=== PATIENT | male | born 1955 | race Caucasian/White ===

== ENCOUNTER 2023-04-13 16:10 | Inpatient (IN) | payer MEDICARE, OTHER ==
[2023-04-13] MEDS ORDERED: Cyclobenzaprine 10 MG TAB PO PRN (17:41)
[2023-04-13] MEDS ORDERED: cloNIDine 0.1 MG TAB PO PRN ×2 (17:41→18:18)
[2023-04-13] MEDS ORDERED: Bisacodyl 5 MG TAB PO PRN (17:44)
[2023-04-13] MEDS ORDERED: HumaLOG 300 UNITS/3 ML VIAL SC PRN (17:44)
[2023-04-13] MEDS ORDERED: Ondansetron ODT 4 MG TAB SL PRN (17:44)
[2023-04-13] MEDS ORDERED: Glucagon 1 MG/ML KIT IM PRN (17:44)
[2023-04-13] MEDS ORDERED: Dextrose 50% Abboject 50 ML SYRINGE SLOW IVP PRN (17:44)
[2023-04-13] MEDS: Acetaminophen/Codeine 30-300mg Tablet PO SCH (18:26)
[2023-04-13] MEDS: Famotidine 20 MG TAB PO SCH (20:28)
[2023-04-13] MEDS: Ascorbic Acid 500 mg Chewable Tablet PO SCH (20:28)
[2023-04-13] MEDS: Atorvastatin Calcium 20 MG TAB PO SCH (20:28)
[2023-04-13] MEDS: Metoprolol Tartrate 25 MG TAB PO SCH (20:28)
[2023-04-13] MEDS: Apixaban 5 MG TAB PO SCH (20:28)
[2023-04-13] MEDS: Gabapentin 100 MG CAP PO SCH (21:42)
[2023-04-14] MEDS: Acetaminophen/Codeine 30-300mg Tablet PO SCH ×4 (00:10→16:55)
[2023-04-14] MEDS: Senokot S 8.6-50 MG TAB PO PRN (02:19)
[2023-04-14] MEDS: Gabapentin 100 MG CAP PO SCH ×3 (05:47→21:45)
[2023-04-14 05:51] LABS: #Eosinphils 0.1 thou/uL (0.0-0.7); #Lymphocytes 0.7 thou/uL (1.20-3.40); #Monocytes 0.5 thou/uL (0.11-0.59); #Neutrophils 2.1 thou/uL (1.40-6.50); %Basophils 1.3 % (0.0-1.0); %Eosinophils 1.4 % (0.0-10.0); %Lymphocytes 21.5 % (21.0-51.0); %Monocytes 14.5 % (0.0-10.0); %Neutrophils 61.3 % (42.0-75.0); Hemoglobin 9.1 g/dL (14.0-18.0); Mean Corpuscular HGB CONC 31.9 g/dL (32.0-36.0); Mean Corpuscular Hemoglobin 29.9 pg (27.0-31.0); Mean Corpuscular Volume 93.8 fl (78.0-98.0); Mean Platelet Volume 6.8 fL (7.4-10.4); Platelet Count 155 10x3/uL (130-400); RBC Distribution Width 14.8 % (11.5-14.5); Red Blood Cell (RBC) Count 3.04 mill/uL (4.70-6.10); White Blood Cell (WBC) Count 3.5 10x3/uL (4.8-10.8)
[2023-04-14 06:08] LABS: ALT (SGPT) 43 U/L (8-55); AST (SGOT) 48 U/L (5-34); Albumin 3.6 g/dL (3.4-4.8); Alkaline Phosphatase 54 U/L (40-110); Anion Gap 15 mmol/L (10-20); BUN (Urea Nitrogen) 14 mg/dL (8.4-25.7); Calc. Creatinine Clearance 190 mL/min (70-130); Calcium 8.9 mg/dL (7.8-10.44); Carbon Dioxide 25 mmol/L (23-31); Chloride 102 mmol/L (98-107); Estimated GFR 104; Globulin 2.4 g/dL (2.4-3.5); Glucose 113 mg/dL (80-115); Potassium 4.3 mmol/L (3.5-5.1); Sodium 138 mmol/L (136-145)
[2023-04-14] MEDS: Famotidine 20 MG TAB PO SCH ×2 (07:29→20:34)
[2023-04-14] MEDS: Apixaban 5 MG TAB PO SCH ×2 (07:29→20:34)
[2023-04-14] MEDS: Allopurinol 100 MG TAB PO SCH (07:29)
[2023-04-14] MEDS: Ferrous Sulfate 325 MG TAB PO SCH ×2 (07:29→16:55)
[2023-04-14] MEDS: Ascorbic Acid 500 mg Chewable Tablet PO SCH ×2 (07:29→20:34)
[2023-04-14] MEDS: Empagliflozin 10 MG TAB PO SCH (07:30)
[2023-04-14] MEDS: metFORMIN 500 MG TAB PO SCH ×2 (07:30→16:55)
[2023-04-14] MEDS: Amlodipine 5 MG TAB PO SCH (07:41)
[2023-04-14] MEDS: Ramipril 5 MG CAP PO SCH (07:42)
[2023-04-14] MEDS: Metoprolol Tartrate 25 MG TAB PO SCH ×2 (07:42→20:34)
[2023-04-14] MEDS: Atorvastatin Calcium 20 MG TAB PO SCH (20:34)
[2023-04-15] MEDS: Acetaminophen/Codeine 30-300mg Tablet PO SCH ×4 (00:04→17:47)
[2023-04-15] MEDS: Gabapentin 100 MG CAP PO SCH ×3 (05:44→20:51)
[2023-04-15] MEDS: Ramipril 5 MG CAP PO SCH (08:56)
[2023-04-15] MEDS: Famotidine 20 MG TAB PO SCH ×2 (08:57→20:46)
[2023-04-15] MEDS: Allopurinol 100 MG TAB PO SCH (08:57)
[2023-04-15] MEDS: Apixaban 5 MG TAB PO SCH ×2 (08:57→20:44)
[2023-04-15] MEDS: Ferrous Sulfate 325 MG TAB PO SCH ×2 (08:57→17:46)
[2023-04-15] MEDS: Ascorbic Acid 500 mg Chewable Tablet PO SCH ×2 (08:58→20:44)
[2023-04-15] MEDS: Amlodipine 5 MG TAB PO SCH (08:58)
[2023-04-15] MEDS: metFORMIN 500 MG TAB PO SCH ×2 (08:59→17:47)
[2023-04-15] MEDS: Empagliflozin 10 MG TAB PO SCH (08:59)
[2023-04-15] MEDS: Metoprolol Tartrate 25 MG TAB PO SCH ×2 (09:00→20:46)
[2023-04-15] MEDS: HumaLOG 300 UNITS/3 ML VIAL SC PRN (12:04)
[2023-04-15] MEDS: Atorvastatin Calcium 20 MG TAB PO SCH (20:46)
[2023-04-16] MEDS: Acetaminophen/Codeine 30-300mg Tablet PO SCH ×5 (05:53→23:54)
[2023-04-16] MEDS: Gabapentin 100 MG CAP PO SCH ×3 (05:55→21:53)
[2023-04-16 06:34] LABS: #Lymphocytes 0.9 thou/uL (1.20-3.40); #Monocytes 0.5 thou/uL (0.11-0.59); #Neutrophils 2.4 thou/uL (1.40-6.50); %Basophils 0.9 % (0.0-1.0); %Eosinophils 1.2 % (0.0-10.0); %Lymphocytes 22.5 % (21.0-51.0); %Monocytes 13.2 % (0.0-10.0); %Neutrophils 62.2 % (42.0-75.0); Hemoglobin 9.4 g/dL (14.0-18.0); Mean Corpuscular HGB CONC 31.9 g/dL (32.0-36.0); Mean Corpuscular Hemoglobin 30.3 pg (27.0-31.0); Mean Corpuscular Volume 94.9 fl (78.0-98.0); Platelet Count 163 10x3/uL (130-400); RBC Distribution Width 16.3 % (11.5-14.5); Red Blood Cell (RBC) Count 3.11 mill/uL (4.70-6.10); White Blood Cell (WBC) Count 3.9 10x3/uL (4.8-10.8)
[2023-04-16 06:48] LABS: ALT (SGPT) 52 U/L (8-55); AST (SGOT) 46 U/L (5-34); Albumin 3.5 g/dL (3.4-4.8); Alkaline Phosphatase 58 U/L (40-110); Anion Gap 15 mmol/L (10-20); BUN (Urea Nitrogen) 10 mg/dL (8.4-25.7); Bilirubin, Total 1.7 mg/dL (0.2-1.2); Calc. Creatinine Clearance 192 mL/min (70-130); Calcium 8.8 mg/dL (7.8-10.44); Carbon Dioxide 27 mmol/L (23-31); Chloride 101 mmol/L (98-107); Estimated GFR 104; Globulin 2.5 g/dL (2.4-3.5); Glucose 110 mg/dL (80-115); Potassium 4.2 mmol/L (3.5-5.1); Sodium 139 mmol/L (136-145)
[2023-04-16] MEDS: metFORMIN 500 MG TAB PO SCH ×2 (07:35→17:12)
[2023-04-16] MEDS: Ferrous Sulfate 325 MG TAB PO SCH ×2 (07:36→17:10)
[2023-04-16] MEDS: Metoprolol Tartrate 25 MG TAB PO SCH ×2 (07:36→20:57)
[2023-04-16] MEDS: Allopurinol 100 MG TAB PO SCH (07:36)
[2023-04-16] MEDS: Famotidine 20 MG TAB PO SCH ×2 (07:36→20:58)
[2023-04-16] MEDS: Ascorbic Acid 500 mg Chewable Tablet PO SCH ×2 (07:36→20:57)
[2023-04-16] MEDS: Apixaban 5 MG TAB PO SCH ×2 (07:37→20:57)
[2023-04-16] MEDS: Empagliflozin 10 MG TAB PO SCH (07:38)
[2023-04-16] MEDS: Amlodipine 5 MG TAB PO SCH (07:39)
[2023-04-16] MEDS: Ramipril 5 MG CAP PO SCH (07:40)
[2023-04-16] MEDS: Atorvastatin Calcium 20 MG TAB PO SCH (20:57)
[2023-04-17] MEDS: Acetaminophen/Codeine 30-300mg Tablet PO SCH ×4 (05:42→23:54)
[2023-04-17] MEDS: Gabapentin 100 MG CAP PO SCH ×3 (05:43→21:02)
[2023-04-17] MEDS: Allopurinol 100 MG TAB PO SCH (08:40)
[2023-04-17] MEDS: Ascorbic Acid 500 mg Chewable Tablet PO SCH ×2 (08:40→21:01)
[2023-04-17] MEDS: Apixaban 5 MG TAB PO SCH ×2 (08:40→21:04)
[2023-04-17] MEDS: Ferrous Sulfate 325 MG TAB PO SCH ×2 (08:40→17:46)
[2023-04-17] MEDS: Famotidine 20 MG TAB PO SCH ×2 (08:40→21:01)
[2023-04-17] MEDS: metFORMIN 500 MG TAB PO SCH ×2 (08:40→17:47)
[2023-04-17] MEDS: Ramipril 5 MG CAP PO SCH (08:41)
[2023-04-17] MEDS: Amlodipine 5 MG TAB PO SCH (08:41)
[2023-04-17] MEDS: Empagliflozin 10 MG TAB PO SCH (08:41)
[2023-04-17] MEDS: Metoprolol Tartrate 25 MG TAB PO SCH ×2 (08:42→21:01)
[2023-04-17] MEDS: Atorvastatin Calcium 20 MG TAB PO SCH (21:01)
[2023-04-18] MEDS: Acetaminophen/Codeine 30-300mg Tablet PO SCH ×4 (05:39→23:38)
[2023-04-18] MEDS: Gabapentin 100 MG CAP PO SCH ×3 (05:40→21:18)
[2023-04-18 06:15] LABS: #Lymphocytes 0.9 thou/uL (1.20-3.40); #Monocytes 0.5 thou/uL (0.11-0.59); #Neutrophils 2.1 thou/uL (1.40-6.50); %Basophils 1.1 % (0.0-1.0); %Eosinophils 1.2 % (0.0-10.0); %Lymphocytes 26.3 % (21.0-51.0); %Monocytes 13.3 % (0.0-10.0); %Neutrophils 58.2 % (42.0-75.0); Hemoglobin 9.6 g/dL (14.0-18.0); Mean Corpuscular HGB CONC 32.5 g/dL (32.0-36.0); Mean Corpuscular Hemoglobin 30.2 pg (27.0-31.0); Mean Corpuscular Volume 93.1 fl (78.0-98.0); Mean Platelet Volume 7.5 fL (7.4-10.4); Platelet Count 180 10x3/uL (130-400); RBC Distribution Width 16.4 % (11.5-14.5); Red Blood Cell (RBC) Count 3.19 mill/uL (4.70-6.10); White Blood Cell (WBC) Count 3.6 10x3/uL (4.8-10.8)
[2023-04-18 06:23] LABS: ALT (SGPT) 40 U/L (8-55); AST (SGOT) 33 U/L (5-34); Albumin 3.4 g/dL (3.4-4.8); Alkaline Phosphatase 62 U/L (40-110); Anion Gap 14 mmol/L (10-20); BUN (Urea Nitrogen) 9 mg/dL (8.4-25.7); Bilirubin, Total 1.8 mg/dL (0.2-1.2); Calc. Creatinine Clearance 192 mL/min (70-130); Calcium 8.7 mg/dL (7.8-10.44); Carbon Dioxide 26 mmol/L (23-31); Chloride 101 mmol/L (98-107); Estimated GFR 104; Globulin 2.4 g/dL (2.4-3.5); Glucose 103 mg/dL (80-115); Protein, Total 5.8 g/dL (5.8-8.1); Sodium 137 mmol/L (136-145)
[2023-04-18] MEDS: metFORMIN 500 MG TAB PO SCH ×2 (08:12→17:02)
[2023-04-18] MEDS: Ramipril 5 MG CAP PO SCH (08:12)
[2023-04-18] MEDS: Empagliflozin 10 MG TAB PO SCH (08:12)
[2023-04-18] MEDS: Ascorbic Acid 500 mg Chewable Tablet PO SCH ×2 (08:12→20:45)
[2023-04-18] MEDS: Famotidine 20 MG TAB PO SCH ×2 (08:12→20:43)
[2023-04-18] MEDS: Metoprolol Tartrate 25 MG TAB PO SCH ×2 (08:13→20:44)
[2023-04-18] MEDS: Apixaban 5 MG TAB PO SCH ×2 (08:13→20:44)
[2023-04-18] MEDS: Ferrous Sulfate 325 MG TAB PO SCH ×2 (08:13→17:02)
[2023-04-18] MEDS: Allopurinol 100 MG TAB PO SCH (08:13)
[2023-04-18] MEDS: Amlodipine 5 MG TAB PO SCH (08:13)
[2023-04-18] MEDS: Atorvastatin Calcium 20 MG TAB PO SCH (20:44)
[2023-04-19] MEDS: Acetaminophen/Codeine 30-300mg Tablet PO SCH ×3 (05:38→17:08)
[2023-04-19] MEDS: Gabapentin 100 MG CAP PO SCH ×2 (05:38→14:23)
[2023-04-19] MEDS: metFORMIN 500 MG TAB PO SCH ×2 (08:11→17:08)
[2023-04-19] MEDS: Metoprolol Tartrate 25 MG TAB PO SCH ×2 (08:12→21:15)
[2023-04-19] MEDS: Ferrous Sulfate 325 MG TAB PO SCH ×2 (08:12→17:08)
[2023-04-19] MEDS: Famotidine 20 MG TAB PO SCH ×2 (08:12→21:15)
[2023-04-19] MEDS: Ramipril 5 MG CAP PO SCH (08:12)
[2023-04-19] MEDS: Allopurinol 100 MG TAB PO SCH (08:12)
[2023-04-19] MEDS: Amlodipine 5 MG TAB PO SCH (08:13)
[2023-04-19] MEDS: Empagliflozin 10 MG TAB PO SCH (08:14)
[2023-04-19] MEDS: Ascorbic Acid 500 mg Chewable Tablet PO SCH ×2 (08:14→21:15)
[2023-04-19] MEDS: Apixaban 5 MG TAB PO SCH ×2 (08:14→21:15)
[2023-04-19] MEDS ORDERED: Furosemide 20 MG TAB PO SCH (16:45)
[2023-04-19] MEDS: Atorvastatin Calcium 20 MG TAB PO SCH (21:15)
[2023-04-20] MEDS: Acetaminophen/Codeine 30-300mg Tablet PO SCH ×5 (01:24→23:58)
[2023-04-20 06:02] LABS: #Eosinphils 0.1 thou/uL (0.0-0.7); #Lymphocytes 0.8 thou/uL (1.20-3.40); #Monocytes 0.4 thou/uL (0.11-0.59); #Neutrophils 2.3 thou/uL (1.40-6.50); %Basophils 0.5 % (0.0-1.0); %Eosinophils 1.5 % (0.0-10.0); %Lymphocytes 22.5 % (21.0-51.0); %Monocytes 11.5 % (0.0-10.0); Hemoglobin 9.9 g/dL (14.0-18.0); Mean Corpuscular HGB CONC 31.1 g/dL (32.0-36.0); Mean Corpuscular Hemoglobin 29.1 pg (27.0-31.0); Mean Corpuscular Volume 93.5 fl (78.0-98.0); Mean Platelet Volume 5.5 fL (7.4-10.4); Platelet Count 178 10x3/uL (130-400); RBC Distribution Width 16.5 % (11.5-14.5); White Blood Cell (WBC) Count 3.6 10x3/uL (4.8-10.8)
[2023-04-20 06:22] LABS: ALT (SGPT) 36 U/L (8-55); AST (SGOT) 31 U/L (5-34); Albumin 3.5 g/dL (3.4-4.8); Alkaline Phosphatase 78 U/L (40-110); Anion Gap 14 mmol/L (10-20); BUN (Urea Nitrogen) 10 mg/dL (8.4-25.7); Bilirubin, Total 1.7 mg/dL (0.2-1.2); Calc. Creatinine Clearance 185 mL/min (70-130); Calcium 8.8 mg/dL (7.8-10.44); Carbon Dioxide 26 mmol/L (23-31); Chloride 102 mmol/L (98-107); Estimated GFR 103; Globulin 2.3 g/dL (2.4-3.5); Glucose 99 mg/dL (80-115); Potassium 4.1 mmol/L (3.5-5.1); Protein, Total 5.8 g/dL (5.8-8.1); Sodium 138 mmol/L (136-145)
[2023-04-20] MEDS: metFORMIN 500 MG TAB PO SCH ×2 (08:55→17:02)
[2023-04-20] MEDS: Empagliflozin 10 MG TAB PO SCH (08:55)
[2023-04-20] MEDS: Apixaban 5 MG TAB PO SCH ×2 (08:55→21:38)
[2023-04-20] MEDS: Ramipril 5 MG CAP PO SCH (08:55)
[2023-04-20] MEDS: Amlodipine 5 MG TAB PO SCH (08:56)
[2023-04-20] MEDS: Furosemide 20 MG TAB PO SCH (08:56)
[2023-04-20] MEDS: Famotidine 20 MG TAB PO SCH ×2 (08:56→21:38)
[2023-04-20] MEDS: Allopurinol 100 MG TAB PO SCH (08:56)
[2023-04-20] MEDS: Metoprolol Tartrate 25 MG TAB PO SCH ×2 (08:56→21:38)
[2023-04-20] MEDS: Ascorbic Acid 500 mg Chewable Tablet PO SCH ×2 (08:56→21:38)
[2023-04-20] MEDS: Ferrous Sulfate 325 MG TAB PO SCH ×2 (08:57→17:03)
[2023-04-20] MEDS: Atorvastatin Calcium 20 MG TAB PO SCH (21:39)
[2023-04-21] MEDS: Acetaminophen/Codeine 30-300mg Tablet PO SCH ×3 (05:21→17:18)
[2023-04-21] MEDS: Famotidine 20 MG TAB PO SCH ×2 (07:51→20:44)
[2023-04-21] MEDS: Allopurinol 100 MG TAB PO SCH (07:51)
[2023-04-21] MEDS: Metoprolol Tartrate 25 MG TAB PO SCH ×2 (07:52→20:45)
[2023-04-21] MEDS: Ramipril 5 MG CAP PO SCH (07:52)
[2023-04-21] MEDS: Ibuprofen 200 MG TAB PO PRN (07:53)
[2023-04-21] MEDS: Ferrous Sulfate 325 MG TAB PO SCH ×2 (07:53→17:18)
[2023-04-21] MEDS: metFORMIN 500 MG TAB PO SCH ×2 (07:53→17:18)
[2023-04-21] MEDS: Amlodipine 5 MG TAB PO SCH (07:53)
[2023-04-21] MEDS: Apixaban 5 MG TAB PO SCH ×2 (07:54→20:45)
[2023-04-21] MEDS: Ascorbic Acid 500 mg Chewable Tablet PO SCH ×2 (07:54→20:45)
[2023-04-21] MEDS: Empagliflozin 10 MG TAB PO SCH (07:54)
[2023-04-21] MEDS: Furosemide 20 MG TAB PO SCH (11:32)
[2023-04-21] MEDS: Cephalexin 500 MG CAP PO SCH (17:17)
[2023-04-21] MEDS: Atorvastatin Calcium 20 MG TAB PO SCH (20:45)
[2023-04-22] MEDS: Acetaminophen/Codeine 30-300mg Tablet PO SCH ×5 (00:02→23:43)
[2023-04-22] MEDS: Cephalexin 500 MG CAP PO SCH ×5 (00:02→23:43)
[2023-04-22] MEDS: Ibuprofen 200 MG TAB PO PRN (03:16)
[2023-04-22] MEDS: metFORMIN 500 MG TAB PO SCH ×2 (08:29→17:05)
[2023-04-22] MEDS: Amlodipine 5 MG TAB PO SCH (08:29)
[2023-04-22] MEDS: Ferrous Sulfate 325 MG TAB PO SCH ×2 (08:29→17:06)
[2023-04-22] MEDS: Ramipril 5 MG CAP PO SCH (08:29)
[2023-04-22] MEDS: Famotidine 20 MG TAB PO SCH ×2 (08:29→20:55)
[2023-04-22] MEDS: Furosemide 20 MG TAB PO SCH (08:29)
[2023-04-22] MEDS: Apixaban 5 MG TAB PO SCH ×2 (08:30→21:01)
[2023-04-22] MEDS: Ascorbic Acid 500 mg Chewable Tablet PO SCH ×2 (08:31→21:01)
[2023-04-22] MEDS: Allopurinol 100 MG TAB PO SCH (08:31)
[2023-04-22] MEDS: Empagliflozin 10 MG TAB PO SCH (08:31)
[2023-04-22] MEDS: Metoprolol Tartrate 25 MG TAB PO SCH ×2 (08:31→21:01)
[2023-04-22] MEDS: HumaLOG 300 UNITS/3 ML VIAL SC PRN (11:15)
[2023-04-22] MEDS: Atorvastatin Calcium 20 MG TAB PO SCH (21:00)
[2023-04-23] MEDS: Acetaminophen/Codeine 30-300mg Tablet PO SCH ×4 (05:28→23:45)
[2023-04-23] MEDS: Cephalexin 500 MG CAP PO SCH ×4 (05:28→23:45)
[2023-04-23] MEDS: Ramipril 5 MG CAP PO SCH (08:14)
[2023-04-23] MEDS: Ferrous Sulfate 325 MG TAB PO SCH ×2 (08:14→17:07)
[2023-04-23] MEDS: Allopurinol 100 MG TAB PO SCH (08:14)
[2023-04-23] MEDS: Famotidine 20 MG TAB PO SCH ×2 (08:14→20:38)
[2023-04-23] MEDS: Furosemide 20 MG TAB PO SCH (08:14)
[2023-04-23] MEDS: Ascorbic Acid 500 mg Chewable Tablet PO SCH ×2 (08:14→20:38)
[2023-04-23] MEDS: metFORMIN 500 MG TAB PO SCH ×2 (08:14→17:07)
[2023-04-23] MEDS: Metoprolol Tartrate 25 MG TAB PO SCH ×2 (08:15→20:38)
[2023-04-23] MEDS: Empagliflozin 10 MG TAB PO SCH (08:15)
[2023-04-23] MEDS: Apixaban 5 MG TAB PO SCH ×2 (08:15→20:38)
[2023-04-23] MEDS: Amlodipine 5 MG TAB PO SCH (08:15)
[2023-04-23] MEDS ORDERED: Furosemide 20 MG TAB PO SCH (13:00)
[2023-04-23] MEDS: Atorvastatin Calcium 20 MG TAB PO SCH (20:37)
[2023-04-24] MEDS: Acetaminophen/Codeine 30-300mg Tablet PO SCH ×4 (05:12→23:40)
[2023-04-24] MEDS: Cephalexin 500 MG CAP PO SCH ×4 (05:13→23:40)
[2023-04-24] MEDS: Allopurinol 100 MG TAB PO SCH (08:54)
[2023-04-24] MEDS: Ramipril 5 MG CAP PO SCH (08:55)
[2023-04-24] MEDS: metFORMIN 500 MG TAB PO SCH ×2 (08:56→17:21)
[2023-04-24] MEDS: Ferrous Sulfate 325 MG TAB PO SCH ×2 (08:56→17:19)
[2023-04-24] MEDS: Furosemide 20 MG TAB PO SCH (08:56)
[2023-04-24] MEDS: Metoprolol Tartrate 25 MG TAB PO SCH ×2 (08:56→20:57)
[2023-04-24] MEDS: Famotidine 20 MG TAB PO SCH ×2 (08:57→20:57)
[2023-04-24] MEDS: Empagliflozin 10 MG TAB PO SCH (08:57)
[2023-04-24] MEDS: Amlodipine 5 MG TAB PO SCH (08:57)
[2023-04-24] MEDS: Ascorbic Acid 500 mg Chewable Tablet PO SCH ×2 (08:57→20:57)
[2023-04-24] MEDS: Apixaban 5 MG TAB PO SCH ×2 (08:57→20:57)
[2023-04-24] MEDS: HumaLOG 300 UNITS/3 ML VIAL SC PRN (17:18)
[2023-04-24] MEDS: Atorvastatin Calcium 20 MG TAB PO SCH (20:57)
[2023-04-25] MEDS: Acetaminophen/Codeine 30-300mg Tablet PO SCH ×3 (05:33→17:27)
[2023-04-25] MEDS: Cephalexin 500 MG CAP PO SCH ×3 (05:33→17:27)
[2023-04-25 05:34] LABS: ALT (SGPT) 37 U/L (8-55); AST (SGOT) 34 U/L (5-34); Albumin 3.9 g/dL (3.4-4.8); Alkaline Phosphatase 100 U/L (40-110); Anion Gap 13 mmol/L (10-20); BUN (Urea Nitrogen) 8 mg/dL (8.4-25.7); Bilirubin, Total 1.2 mg/dL (0.2-1.2); Calc. Creatinine Clearance 164 mL/min (70-130); Calcium 9.4 mg/dL (7.8-10.44); Carbon Dioxide 30 mmol/L (23-31); Chloride 101 mmol/L (98-107); Estimated GFR 101; Glucose 114 mg/dL (80-115); Potassium 4.1 mmol/L (3.5-5.1); Protein, Total 6.9 g/dL (5.8-8.1); Sodium 140 mmol/L (136-145)
[2023-04-25] MEDS: Furosemide 20 MG TAB PO SCH (07:59)
[2023-04-25] MEDS: Allopurinol 100 MG TAB PO SCH (07:59)
[2023-04-25] MEDS: metFORMIN 500 MG TAB PO SCH ×2 (08:00→17:27)
[2023-04-25] MEDS: Ramipril 5 MG CAP PO SCH (08:00)
[2023-04-25] MEDS: Amlodipine 5 MG TAB PO SCH (08:00)
[2023-04-25] MEDS: Famotidine 20 MG TAB PO SCH ×2 (08:01→21:34)
[2023-04-25] MEDS: Ferrous Sulfate 325 MG TAB PO SCH ×2 (08:01→17:27)
[2023-04-25] MEDS: Apixaban 5 MG TAB PO SCH ×2 (08:01→21:35)
[2023-04-25] MEDS: Metoprolol Tartrate 25 MG TAB PO SCH ×2 (08:01→21:34)
[2023-04-25] MEDS: Ascorbic Acid 500 mg Chewable Tablet PO SCH ×2 (08:01→21:34)
[2023-04-25] MEDS: Empagliflozin 10 MG TAB PO SCH (08:01)
[2023-04-25] MEDS: Atorvastatin Calcium 20 MG TAB PO SCH (21:36)
[2023-04-26] MEDS: Cephalexin 500 MG CAP PO SCH ×4 (00:07→17:29)
[2023-04-26] MEDS: Acetaminophen/Codeine 30-300mg Tablet PO SCH ×4 (00:07→17:31)
[2023-04-26] MEDS: Metoprolol Tartrate 25 MG TAB PO SCH ×2 (08:45→21:47)
[2023-04-26] MEDS: Famotidine 20 MG TAB PO SCH ×2 (08:45→21:47)
[2023-04-26] MEDS: Ramipril 5 MG CAP PO SCH (08:45)
[2023-04-26] MEDS: Allopurinol 100 MG TAB PO SCH (08:46)
[2023-04-26] MEDS: Apixaban 5 MG TAB PO SCH ×2 (08:46→21:47)
[2023-04-26] MEDS: Ferrous Sulfate 325 MG TAB PO SCH ×2 (08:47→17:29)
[2023-04-26] MEDS: Empagliflozin 10 MG TAB PO SCH (08:47)
[2023-04-26] MEDS: Amlodipine 5 MG TAB PO SCH (08:47)
[2023-04-26] MEDS: Ascorbic Acid 500 mg Chewable Tablet PO SCH ×2 (08:47→21:48)
[2023-04-26] MEDS: metFORMIN 500 MG TAB PO SCH ×2 (08:48→17:33)
[2023-04-26] MEDS: Furosemide 20 MG TAB PO SCH (08:48)
[2023-04-26] MEDS: Atorvastatin Calcium 20 MG TAB PO SCH (21:48)
[2023-04-27] MEDS: Cephalexin 500 MG CAP PO SCH ×5 (00:10→23:32)
[2023-04-27] MEDS: Acetaminophen/Codeine 30-300mg Tablet PO SCH ×5 (00:10→23:32)
[2023-04-27 06:07] LABS: Hemoglobin 11.8 g/dL (14.0-18.0)
[2023-04-27] MEDS: Ferrous Sulfate 325 MG TAB PO SCH ×2 (09:19→16:36)
[2023-04-27] MEDS: metFORMIN 500 MG TAB PO SCH ×2 (09:19→16:36)
[2023-04-27] MEDS: Amlodipine 5 MG TAB PO SCH (09:20)
[2023-04-27] MEDS: Ascorbic Acid 500 mg Chewable Tablet PO SCH ×2 (09:20→20:35)
[2023-04-27] MEDS: Allopurinol 100 MG TAB PO SCH (09:20)
[2023-04-27] MEDS: Apixaban 5 MG TAB PO SCH ×2 (09:21→20:35)
[2023-04-27] MEDS: Metoprolol Tartrate 25 MG TAB PO SCH ×2 (09:21→20:36)
[2023-04-27] MEDS: Famotidine 20 MG TAB PO SCH ×2 (09:21→20:35)
[2023-04-27] MEDS: Furosemide 20 MG TAB PO SCH (09:21)
[2023-04-27] MEDS: Ramipril 5 MG CAP PO SCH (09:21)
[2023-04-27] MEDS: Empagliflozin 10 MG TAB PO SCH (09:22)
[2023-04-27] MEDS: Senokot S 8.6-50 MG TAB PO PRN (16:39)
[2023-04-27] MEDS: Atorvastatin Calcium 20 MG TAB PO SCH (20:35)
[2023-04-28] MEDS: Acetaminophen/Codeine 30-300mg Tablet PO SCH ×4 (05:29→23:45)
[2023-04-28] MEDS: Cephalexin 500 MG CAP PO SCH ×2 (05:29→12:59)
[2023-04-28] MEDS: Amlodipine 5 MG TAB PO SCH (08:16)
[2023-04-28] MEDS: Ascorbic Acid 500 mg Chewable Tablet PO SCH ×2 (08:16→20:29)
[2023-04-28] MEDS: Apixaban 5 MG TAB PO SCH ×2 (08:16→20:29)
[2023-04-28] MEDS: Furosemide 20 MG TAB PO SCH (08:16)
[2023-04-28] MEDS: Allopurinol 100 MG TAB PO SCH (08:16)
[2023-04-28] MEDS: Ferrous Sulfate 325 MG TAB PO SCH ×2 (08:17→16:31)
[2023-04-28] MEDS: Empagliflozin 10 MG TAB PO SCH (08:17)
[2023-04-28] MEDS: Metoprolol Tartrate 25 MG TAB PO SCH ×2 (08:17→20:29)
[2023-04-28] MEDS: metFORMIN 500 MG TAB PO SCH ×2 (08:17→16:31)
[2023-04-28] MEDS: Famotidine 20 MG TAB PO SCH ×2 (08:19→20:29)
[2023-04-28] MEDS: Ramipril 5 MG CAP PO SCH (08:19)
[2023-04-28] MEDS: HumaLOG 300 UNITS/3 ML VIAL SC PRN (16:34)
[2023-04-28] MEDS: Atorvastatin Calcium 20 MG TAB PO SCH (20:29)
[2023-04-29] MEDS: Acetaminophen/Codeine 30-300mg Tablet PO SCH ×4 (05:38→23:42)
[2023-04-29] MEDS: Apixaban 5 MG TAB PO SCH ×2 (07:57→20:45)
[2023-04-29] MEDS: Ramipril 5 MG CAP PO SCH (07:57)
[2023-04-29] MEDS: Ascorbic Acid 500 mg Chewable Tablet PO SCH ×2 (07:58→20:45)
[2023-04-29] MEDS: Amlodipine 5 MG TAB PO SCH (07:58)
[2023-04-29] MEDS: Allopurinol 100 MG TAB PO SCH (07:59)
[2023-04-29] MEDS: metFORMIN 500 MG TAB PO SCH ×2 (07:59→17:43)
[2023-04-29] MEDS: Furosemide 20 MG TAB PO SCH (08:00)
[2023-04-29] MEDS: Ferrous Sulfate 325 MG TAB PO SCH ×2 (08:00→17:43)
[2023-04-29] MEDS: Metoprolol Tartrate 25 MG TAB PO SCH ×2 (08:00→20:45)
[2023-04-29] MEDS: Famotidine 20 MG TAB PO SCH ×2 (08:00→20:45)
[2023-04-29] MEDS: Empagliflozin 10 MG TAB PO SCH (08:03)
[2023-04-29] MEDS: Atorvastatin Calcium 20 MG TAB PO SCH (20:45)
[2023-04-30] MEDS: Acetaminophen/Codeine 30-300mg Tablet PO SCH ×4 (05:47→23:44)
[2023-04-30] MEDS: Allopurinol 100 MG TAB PO SCH (07:37)
[2023-04-30] MEDS: metFORMIN 500 MG TAB PO SCH ×2 (07:37→17:06)
[2023-04-30] MEDS: Apixaban 5 MG TAB PO SCH ×2 (07:38→20:38)
[2023-04-30] MEDS: Ascorbic Acid 500 mg Chewable Tablet PO SCH ×2 (07:38→20:38)
[2023-04-30] MEDS: Ramipril 5 MG CAP PO SCH (07:38)
[2023-04-30] MEDS: Amlodipine 5 MG TAB PO SCH (07:38)
[2023-04-30] MEDS: Furosemide 20 MG TAB PO SCH (07:39)
[2023-04-30] MEDS: Ferrous Sulfate 325 MG TAB PO SCH ×2 (07:39→17:05)
[2023-04-30] MEDS: Empagliflozin 10 MG TAB PO SCH (07:39)
[2023-04-30] MEDS: Metoprolol Tartrate 25 MG TAB PO SCH ×2 (07:39→20:38)
[2023-04-30] MEDS: Famotidine 20 MG TAB PO SCH ×2 (07:39→20:38)
[2023-04-30] MEDS: HumaLOG 300 UNITS/3 ML VIAL SC PRN (17:08)
[2023-04-30] MEDS: Atorvastatin Calcium 20 MG TAB PO SCH (20:38)
[2023-05-01] MEDS: Acetaminophen/Codeine 30-300mg Tablet PO SCH ×4 (05:36→23:26)
[2023-05-01] MEDS: Ramipril 5 MG CAP PO SCH (07:54)
[2023-05-01] MEDS: Ferrous Sulfate 325 MG TAB PO SCH ×2 (07:55→17:11)
[2023-05-01] MEDS: Metoprolol Tartrate 25 MG TAB PO SCH ×2 (07:55→20:50)
[2023-05-01] MEDS: metFORMIN 500 MG TAB PO SCH ×2 (07:55→17:11)
[2023-05-01] MEDS: Allopurinol 100 MG TAB PO SCH (07:56)
[2023-05-01] MEDS: Amlodipine 5 MG TAB PO SCH (07:56)
[2023-05-01] MEDS: Furosemide 20 MG TAB PO SCH (07:56)
[2023-05-01] MEDS: Empagliflozin 10 MG TAB PO SCH (07:57)
[2023-05-01] MEDS: Ascorbic Acid 500 mg Chewable Tablet PO SCH ×2 (07:57→20:49)
[2023-05-01] MEDS: Famotidine 20 MG TAB PO SCH ×2 (07:57→20:50)
[2023-05-01] MEDS: Apixaban 5 MG TAB PO SCH ×2 (07:57→20:49)
[2023-05-01] MEDS: Senokot S 8.6-50 MG TAB PO PRN (08:03)
[2023-05-01] MEDS: HumaLOG 300 UNITS/3 ML VIAL SC PRN (17:10)
[2023-05-01] MEDS: Atorvastatin Calcium 20 MG TAB PO SCH (20:49)
[2023-05-02] MEDS: Acetaminophen/Codeine 30-300mg Tablet PO SCH ×4 (05:32→23:57)
[2023-05-02] MEDS: Ramipril 5 MG CAP PO SCH (08:06)
[2023-05-02] MEDS: Furosemide 20 MG TAB PO SCH (08:06)
[2023-05-02] MEDS: Empagliflozin 10 MG TAB PO SCH (08:06)
[2023-05-02] MEDS: Metoprolol Tartrate 25 MG TAB PO SCH ×2 (08:06→20:29)
[2023-05-02] MEDS: Famotidine 20 MG TAB PO SCH ×2 (08:06→20:29)
[2023-05-02] MEDS: metFORMIN 500 MG TAB PO SCH ×2 (08:07→17:14)
[2023-05-02] MEDS: Allopurinol 100 MG TAB PO SCH (08:07)
[2023-05-02] MEDS: Ferrous Sulfate 325 MG TAB PO SCH ×2 (08:07→17:14)
[2023-05-02] MEDS: Amlodipine 5 MG TAB PO SCH (08:07)
[2023-05-02] MEDS: Apixaban 5 MG TAB PO SCH ×2 (08:07→20:29)
[2023-05-02] MEDS: Ascorbic Acid 500 mg Chewable Tablet PO SCH ×2 (08:07→20:29)
[2023-05-02] MEDS: Atorvastatin Calcium 20 MG TAB PO SCH (20:29)
[2023-05-03 04:35] VITALS: BMI 30.7
[2023-05-03] MEDS: Acetaminophen/Codeine 30-300mg Tablet PO SCH ×3 (05:32→17:31)
[2023-05-03 05:52] LABS: #Eosinphils 0.1 thou/uL (0.0-0.7); #Lymphocytes 0.8 thou/uL (1.20-3.40); #Monocytes 0.4 thou/uL (0.11-0.59); #Neutrophils 1.3 thou/uL (1.40-6.50); %Basophils 0.7 % (0.0-1.0); %Eosinophils 2.6 % (0.0-10.0); %Lymphocytes 32.9 % (21.0-51.0); %Monocytes 14.6 % (0.0-10.0); %Neutrophils 49.2 % (42.0-75.0); Hemoglobin 12.9 g/dL (14.0-18.0); Mean Corpuscular HGB CONC 31.8 g/dL (32.0-36.0); Mean Corpuscular Hemoglobin 28.3 pg (27.0-31.0); Mean Corpuscular Volume 89.1 fl (78.0-98.0); Mean Platelet Volume 7.4 fL (7.4-10.4); Platelet Count 210 10x3/uL (130-400); RBC Distribution Width 15.3 % (11.5-14.5); Red Blood Cell (RBC) Count 4.57 mill/uL (4.70-6.10); White Blood Cell (WBC) Count 2.6 10x3/uL (4.8-10.8)
[2023-05-03 06:15] LABS: Anion Gap 14 mmol/L (10-20); BUN (Urea Nitrogen) 10 mg/dL (8.4-25.7); Calc. Creatinine Clearance 158 mL/min (70-130); Calcium 9.4 mg/dL (7.8-10.44); Carbon Dioxide 28 mmol/L (23-31); Chloride 102 mmol/L (98-107); Estimated GFR 101; Glucose 105 mg/dL (80-115); Sodium 140 mmol/L (136-145)
[2023-05-03] MEDS: Apixaban 5 MG TAB PO SCH ×2 (07:41→20:21)
[2023-05-03] MEDS: metFORMIN 500 MG TAB PO SCH ×2 (07:41→17:31)
[2023-05-03] MEDS: Ferrous Sulfate 325 MG TAB PO SCH ×2 (07:41→17:31)
[2023-05-03] MEDS: Amlodipine 5 MG TAB PO SCH (07:42)
[2023-05-03] MEDS: Ramipril 5 MG CAP PO SCH (07:42)
[2023-05-03] MEDS: Metoprolol Tartrate 25 MG TAB PO SCH ×2 (07:42→20:21)
[2023-05-03] MEDS: Allopurinol 100 MG TAB PO SCH (07:42)
[2023-05-03] MEDS: Famotidine 20 MG TAB PO SCH ×2 (07:43→20:21)
[2023-05-03] MEDS: Furosemide 20 MG TAB PO SCH (07:43)
[2023-05-03] MEDS: Ascorbic Acid 500 mg Chewable Tablet PO SCH ×2 (07:43→20:21)
[2023-05-03] MEDS: Empagliflozin 10 MG TAB PO SCH (07:43)
[2023-05-03] MEDS: Atorvastatin Calcium 20 MG TAB PO SCH (20:21)
[2023-05-04] MEDS: Acetaminophen/Codeine 30-300mg Tablet PO SCH ×5 (00:45→23:27)
[2023-05-04] MEDS: Ascorbic Acid 500 mg Chewable Tablet PO SCH ×2 (09:11→21:04)
[2023-05-04] MEDS: Ramipril 5 MG CAP PO SCH (09:11)
[2023-05-04] MEDS: Empagliflozin 10 MG TAB PO SCH (09:12)
[2023-05-04] MEDS: Allopurinol 100 MG TAB PO SCH (09:12)
[2023-05-04] MEDS: Metoprolol Tartrate 25 MG TAB PO SCH ×2 (09:12→21:04)
[2023-05-04] MEDS: Ferrous Sulfate 325 MG TAB PO SCH ×2 (09:12→17:02)
[2023-05-04] MEDS: Furosemide 20 MG TAB PO SCH (09:12)
[2023-05-04] MEDS: metFORMIN 500 MG TAB PO SCH ×2 (09:12→17:02)
[2023-05-04] MEDS: Amlodipine 5 MG TAB PO SCH (09:13)
[2023-05-04] MEDS: Apixaban 5 MG TAB PO SCH ×2 (09:13→21:04)
[2023-05-04] MEDS: Famotidine 20 MG TAB PO SCH ×2 (09:13→21:04)
[2023-05-04] MEDS: Atorvastatin Calcium 20 MG TAB PO SCH (21:04)
[2023-05-05] MEDS: Acetaminophen/Codeine 30-300mg Tablet PO SCH ×2 (05:24→11:46)
[2023-05-05] MEDS: Furosemide 20 MG TAB PO SCH (08:23)
[2023-05-05] MEDS: Ramipril 5 MG CAP PO SCH (08:24)
[2023-05-05] MEDS: metFORMIN 500 MG TAB PO SCH (08:24)
[2023-05-05] MEDS: Ferrous Sulfate 325 MG TAB PO SCH (08:24)
[2023-05-05] MEDS: Apixaban 5 MG TAB PO SCH (08:25)
[2023-05-05] MEDS: Allopurinol 100 MG TAB PO SCH (08:25)
[2023-05-05] MEDS: Amlodipine 5 MG TAB PO SCH (08:25)
[2023-05-05] MEDS: Empagliflozin 10 MG TAB PO SCH (08:25)
[2023-05-05] MEDS: Famotidine 20 MG TAB PO SCH (08:26)
[2023-05-05] MEDS: Metoprolol Tartrate 25 MG TAB PO SCH (08:26)
[2023-05-05] MEDS: Ascorbic Acid 500 mg Chewable Tablet PO SCH (08:26)
[2023-05-05 09:20] VITALS: BP 118/65; TEMP 97.8
== END 2023-05-05 12:15 | disposition home health service (06) | DRG 560 ==
LOC: NAV ACUTE 17:52
PROVIDERS: ADMIT Family Medicine; ATTEND Family Medicine
DX: S72.141D Displaced intertrochanteric fracture of right femur, subsequent encounter for closed fracture with routine healing (principal); R44.3 Hallucinations, unspecified; S52.501D Unspecified fracture of the lower end of right radius, subsequent encounter for closed fracture with routine healing; S52.611D Displaced fracture of right ulna styloid process, subsequent encounter for closed fracture with routine healing; W18.30XD Fall on same level, unspecified, subsequent encounter; K59.00 Constipation, unspecified; E11.9 Type 2 diabetes mellitus without complications; I10 Essential (primary) hypertension; I48.91 Unspecified atrial fibrillation; E78.5 Hyperlipidemia, unspecified; M10.9 Gout, unspecified; Z82.49 Family history of ischemic heart disease and other diseases of the circulatory system; Z79.01 Long term (current) use of anticoagulants; Z79.84 Long term (current) use of oral hypoglycemic drugs; Z79.899 Other long term (current) drug therapy
CPT/HCPCS: 36415; 36416; 71045; 80048; 80053; 85014; 85018; 85025; J1815